=== PATIENT | female | born 1970 | race American Indian/Alaskan Native ===

== ENCOUNTER 2019-11-10 10:42 | Outpatient (CLI) | payer OTHER ==
--- NOTE | 2019-11-10 12:06 | XRay Report ---
THORACIC SPINE 3 VIEWS INDICATION / CLINICAL INFORMATION: M54.6 PAIN IN THORACIC SPINE. COMPARISON: None available. FINDINGS: VERTEBRAE: No acute fracture. No significant malalignment. DISC SPACES / FACET JOINTS:Mild multilevel degenerative changes. PARASPINAL SOFT TISSUES:No significant abnormality. ADDITIONAL FINDINGS: Partially visualized surgical mesh over the abdomen. Signer Name: Basil Paulino MD Signed: 11/10/2019 12:02 PM Workstation Name: [id number]
== END 2019-11-10 10:43 | disposition home or self-care (01) ==
LOC: XRAY 10:42
PROVIDERS: ATTEND Clinical Nurse Specialist Adult Health
DX: M47.814 Spondylosis without myelopathy or radiculopathy, thoracic region (principal); R07.89 Other chest pain
CPT/HCPCS: 72070